=== PATIENT | male | born 1970 | race African-American/Black ===

== ENCOUNTER 2020-11-22 20:56 | Inpatient (IN) | payer OTHER ==
[2020-11-22 22:48] LABS: BASO % 0.7 % (0-2.0); EOS % 3.1 % (0-4.5); HEMATOCRIT 40.3 % (35.4-49); HEMOGLOBIN 13.7 GM/dL (11.7-16.9); LYMPH % 23.6 % (8-40); MCH 29.6 pg (25.7-33.7); MONO % 12.7 % (3.8-10.2); NEUT % 59.9 % (42.8-82.8); PLATELET COUNT 266 10^3/uL (134-434); RBC 4.64 M/mm3 (4.00-5.60); RDW 13.8 % (11.9-15.9)
[2020-11-22 22:55] LABS: INR 1.27 (0.83-1.09); PROTHROMBIN TIME (PATIENT) 15.3 SEC (9.7-13.0)
[2020-11-22 22:57] LABS: ACTIVATED PTT 32.5 SECONDS (25.2-36.5)
[2020-11-22 23:14] LABS: CALCIUM 8.9 mg/dL (8.5-10.1)
[2020-11-22 23:15] LABS: BLOOD UREA NITROGEN 8.1 mg/dL (7-18)
[2020-11-22 23:18] LABS: CREATININE 0.8 mg/dL (0.55-1.3)
[2020-11-22 23:19] LABS: BILIRUBIN,TOTAL 0.5 mg/dL (0.2-1); TOT PROT 8.1 g/dl (6.4-8.2)
[2020-11-23] MEDS ORDERED: SENNOSIDES 8.6MG TABLET (FP) PO PRN (03:23)
[2020-11-23 05:00] LABS: URINE APPEARANCE CLEAR; URINE BILIRUBIN NEGATIVE (NEGATIVE); URINE COLOR DK YELLOW; URINE GLUCOSE (UA) NEGATIVE (NEGATIVE); URINE KETONE 2+ (NEGATIVE); URINE LEUK ESTERASE NEGATIVE (NEGATIVE); URINE NITRITE NEGATIVE (NEGATIVE); URINE PROTEIN NEGATIVE (NEGATIVE)
[2020-11-23] MEDS ORDERED: ENOXAPARIN NA (PORCINE) 40 MG/0.4 ML DISP.SYRIN SQ ONE (09:34)
[2020-11-23] MEDS: ENOXAPARIN NA (PORCINE) 40 MG/0.4 ML DISP.SYRIN SQ SCH (09:46)
[2020-11-23] MEDS: AMINO ACIDS 4.25%/D5W 1,000 ML IV SCH ×2 (10:41→19:31)
[2020-11-23] MEDS: ACETAMINOPHEN 1000 MG/100 ML VIAL (NON FORMULARY) IVPB PRN ×2 (11:00→23:53)
[2020-11-23 11:30] LABS: BASO % 0.7 % (0-2.0); EOS % 4.2 % (0-4.5); HEMATOCRIT 41.6 % (35.4-49); LYMPH % 26.5 % (8-40); MCH 29.6 pg (25.7-33.7); MCHC 33.6 g/dl (32.0-35.9); MEAN PLT VOLUME 7.6 fl (7.5-11.1); MONO % 10.6 % (3.8-10.2); PLATELET COUNT 292 10^3/uL (134-434); RBC 4.72 M/mm3 (4.00-5.60); RDW 13.5 % (11.9-15.9); WHITE BLOOD COUNT 5.1 K/mm3 (4.0-10.0)
[2020-11-23 11:50] LABS: ALBUMIN 3.1 g/dl (3.4-5.0); BLOOD UREA NITROGEN 8.9 mg/dL (7-18); CALCIUM 9.1 mg/dL (8.5-10.1); MAGNESIUM 2.1 mg/dL (1.8-2.4)
[2020-11-23 11:53] LABS: CREATININE 0.8 mg/dL (0.55-1.3)
[2020-11-23 11:54] LABS: PHOSPHOROUS 3.2 mg/dL (2.5-4.9)
[2020-11-23 11:55] LABS: BILIRUBIN,TOTAL 0.6 mg/dL (0.2-1); TOT PROT 8.4 g/dl (6.4-8.2)
[2020-11-23] MEDS ORDERED: MORPHINE SULFATE 2 MG/ML VIAL IVPUSH ONE (14:32)
[2020-11-23] MEDS ORDERED: MORPHINE SULFATE 2 MG/ML VIAL ONE (15:26)
[2020-11-23] MEDS: DEXTROSE 5%-NORMAL SALINE 1,000 ML IV SCH (15:30)
[2020-11-23] MEDS: CARVEDILOL 25 MG TABLET (FP) PO SCH (21:19)
[2020-11-23] MEDS: ATORVASTATIN CA 40 MG TABLET (FP) PO SCH (21:19)
[2020-11-24] MEDS: AMINO ACIDS 4.25%/D5W 1,000 ML IV SCH (05:05)
[2020-11-24] MEDS: ELVITEG/COB/EMTRI/TENOFO (STRIBILD) TABLET -NF PO SCH (09:05)
[2020-11-24] MEDS: SULFAMETHOXAZOLE/TRIMETHOPRIM 800MG/160MG D.S. TABLET PO SCH (09:06)
[2020-11-24] MEDS: THIAMINE HCL 100 MG TABLET (FP) PO SCH (09:06)
[2020-11-24] MEDS: CARVEDILOL 25 MG TABLET (FP) PO SCH ×2 (09:06→21:20)
[2020-11-24] MEDS: ENOXAPARIN NA (PORCINE) 40 MG/0.4 ML DISP.SYRIN SQ SCH (09:06)
[2020-11-24] MEDS: ACETAMINOPHEN 1000 MG/100 ML VIAL (NON FORMULARY) IVPB PRN (09:08)
[2020-11-24] MEDS ORDERED: PT OWN MED DRAWER 7, Y5N ONE (09:15)
[2020-11-24] MEDS ORDERED: AMINO ACIDS 4.25%/D5W 1,000 ML IV SCH (15:30)
[2020-11-24] MEDS ORDERED: SODIUM CHLORIDE FOR INHALATION 3 ML VIAL.NEB IH PRN (15:37)
[2020-11-24 16:31] VITALS: BMI 20.9
[2020-11-24] MEDS: ACETAMINOPHEN 325 MG TABLET (FP) PO PRN (21:20)
[2020-11-24] MEDS: oxyCODONE HCL 5 MG TABLET PO PRN (21:20)
[2020-11-24] MEDS: guaiFENesin 600 MG TABLET.ER (FP) PO SCH (21:20)
[2020-11-24] MEDS: ATORVASTATIN CA 40 MG TABLET (FP) PO SCH (21:22)
[2020-11-25] MEDS: DEXTROSE 5%-NORMAL SALINE 1,000 ML IV SCH (03:45)
[2020-11-25] MEDS: oxyCODONE HCL 5 MG TABLET PO PRN ×3 (05:10→23:31)
[2020-11-25] MEDS: ACETAMINOPHEN 325 MG TABLET (FP) PO PRN ×3 (05:11→23:32)
[2020-11-25] MEDS ORDERED: PT OWN MED DRAWER 7, Y5N ONE ×3 (10:38→12:20)
[2020-11-25] MEDS: ENOXAPARIN NA (PORCINE) 40 MG/0.4 ML DISP.SYRIN SQ SCH (10:59)
[2020-11-25] MEDS: THIAMINE HCL 100 MG TABLET (FP) PO SCH (11:00)
[2020-11-25] MEDS: CARVEDILOL 25 MG TABLET (FP) PO SCH ×2 (11:00→21:24)
[2020-11-25] MEDS: guaiFENesin 600 MG TABLET.ER (FP) PO SCH ×2 (11:00→21:34)
[2020-11-25] MEDS: SULFAMETHOXAZOLE/TRIMETHOPRIM 800MG/160MG D.S. TABLET PO SCH (11:00)
[2020-11-25] MEDS: ELVITEG/COB/EMTRI/TENOFO (STRIBILD) TABLET -NF PO SCH (12:21)
[2020-11-25] MEDS: ATORVASTATIN CA 40 MG TABLET (FP) PO SCH (21:34)
[2020-11-26] MEDS ORDERED: PT OWN MED DRAWER 7, Y5N ONE (09:55)
[2020-11-26] MEDS: SULFAMETHOXAZOLE/TRIMETHOPRIM 800MG/160MG D.S. TABLET PO SCH (10:03)
[2020-11-26] MEDS: THIAMINE HCL 100 MG TABLET (FP) PO SCH (10:04)
[2020-11-26] MEDS: ACETAMINOPHEN 325 MG TABLET (FP) PO PRN (10:04)
[2020-11-26] MEDS: ELVITEG/COB/EMTRI/TENOFO (STRIBILD) TABLET -NF PO SCH (10:04)
[2020-11-26] MEDS: guaiFENesin 600 MG TABLET.ER (FP) PO SCH ×2 (10:04→22:33)
[2020-11-26] MEDS: CARVEDILOL 25 MG TABLET (FP) PO SCH ×2 (10:04→22:33)
[2020-11-26] MEDS: ENOXAPARIN NA (PORCINE) 40 MG/0.4 ML DISP.SYRIN SQ SCH (10:04)
[2020-11-26] MEDS: oxyCODONE HCL 5 MG TABLET PO PRN ×2 (10:04→22:49)
[2020-11-26 11:40] LABS: BASO % 0.7 % (0-2.0); EOS % 7.3 % (0-4.5); HEMATOCRIT 37.2 % (35.4-49); HEMOGLOBIN 12.8 GM/dL (11.7-16.9); LYMPH % 24.9 % (8-40); MCH 29.4 pg (25.7-33.7); MCHC 34.4 g/dl (32.0-35.9); MEAN CELL VOLUME 85.5 fl (80-96); MEAN PLT VOLUME 7.4 fl (7.5-11.1); MONO % 11.4 % (3.8-10.2); NEUT % 55.7 % (42.8-82.8); PLATELET COUNT 297 10^3/uL (134-434); RBC 4.36 M/mm3 (4.00-5.60); RDW 13.7 % (11.9-15.9); WHITE BLOOD COUNT 5.6 K/mm3 (4.0-10.0)
[2020-11-26 12:07] LABS: ALBUMIN 2.8 g/dl (3.4-5.0); BLOOD UREA NITROGEN 7.6 mg/dL (7-18)
[2020-11-26 12:09] LABS: BILIRUBIN,TOTAL 0.4 mg/dL (0.2-1); CALCIUM 8.5 mg/dL (8.5-10.1); TOT PROT 7.5 g/dl (6.4-8.2)
[2020-11-26 12:10] LABS: CREATININE 0.8 mg/dL (0.55-1.3); MAGNESIUM 1.9 mg/dL (1.8-2.4)
[2020-11-26 12:11] LABS: PHOSPHOROUS 2.4 mg/dL (2.5-4.9)
[2020-11-26] MEDS: ATORVASTATIN CA 40 MG TABLET (FP) PO SCH (22:33)
[2020-11-27] MEDS: SULFAMETHOXAZOLE/TRIMETHOPRIM 800MG/160MG D.S. TABLET PO SCH (09:15)
[2020-11-27] MEDS: CARVEDILOL 25 MG TABLET (FP) PO SCH ×2 (09:15→21:57)
[2020-11-27] MEDS: oxyCODONE HCL 5 MG TABLET PO PRN ×2 (09:15→20:11)
[2020-11-27] MEDS: ENOXAPARIN NA (PORCINE) 40 MG/0.4 ML DISP.SYRIN SQ SCH (09:15)
[2020-11-27] MEDS: ACETAMINOPHEN 325 MG TABLET (FP) PO PRN ×2 (09:15→20:10)
[2020-11-27] MEDS: guaiFENesin 600 MG TABLET.ER (FP) PO SCH ×2 (09:15→21:57)
[2020-11-27] MEDS: THIAMINE HCL 100 MG TABLET (FP) PO SCH (09:15)
[2020-11-27] MEDS ORDERED: PT OWN MED DRAWER 7, Y5N ONE (11:23)
[2020-11-27 11:26] LABS: BASO % 0.8 % (0-2.0); EOS % 6.2 % (0-4.5); HEMATOCRIT 36.8 % (35.4-49); HEMOGLOBIN 12.6 GM/dL (11.7-16.9); LYMPH % 27.6 % (8-40); MCH 29.8 pg (25.7-33.7); MCHC 34.2 g/dl (32.0-35.9); MEAN CELL VOLUME 87.1 fl (80-96); MEAN PLT VOLUME 7.6 fl (7.5-11.1); MONO % 11.9 % (3.8-10.2); NEUT % 53.5 % (42.8-82.8); PLATELET COUNT 313 10^3/uL (134-434); RBC 4.22 M/mm3 (4.00-5.60); RDW 13.6 % (11.9-15.9); WHITE BLOOD COUNT 5.8 K/mm3 (4.0-10.0)
[2020-11-27] MEDS: ELVITEG/COB/EMTRI/TENOFO (STRIBILD) TABLET -NF PO SCH (11:43)
[2020-11-27 11:59] LABS: CALCIUM 8.4 mg/dL (8.5-10.1)
[2020-11-27 12:00] LABS: ALBUMIN 2.8 g/dl (3.4-5.0); BLOOD UREA NITROGEN 9.3 mg/dL (7-18); MAGNESIUM 1.9 mg/dL (1.8-2.4)
[2020-11-27 12:03] LABS: CREATININE 0.9 mg/dL (0.55-1.3); PHOSPHOROUS 2.8 mg/dL (2.5-4.9)
[2020-11-27 12:04] LABS: BILIRUBIN,TOTAL 0.4 mg/dL (0.2-1); TOT PROT 7.5 g/dl (6.4-8.2)
[2020-11-27] MEDS: ATORVASTATIN CA 40 MG TABLET (FP) PO SCH (21:57)
[2020-11-28] MEDS: oxyCODONE HCL 5 MG TABLET PO PRN ×3 (04:21→22:14)
[2020-11-28] MEDS: ACETAMINOPHEN 325 MG TABLET (FP) PO PRN ×2 (04:22→11:21)
[2020-11-28 09:29] LABS: BASO % 1.1 % (0-2.0); EOS % 8.5 % (0-4.5); HEMATOCRIT 39.6 % (35.4-49); HEMOGLOBIN 13.2 GM/dL (11.7-16.9); LYMPH % 38.1 % (8-40); MCH 29.4 pg (25.7-33.7); MCHC 33.4 g/dl (32.0-35.9); MEAN PLT VOLUME 7.8 fl (7.5-11.1); MONO % 9.9 % (3.8-10.2); NEUT % 42.4 % (42.8-82.8); PLATELET COUNT 359 10^3/uL (134-434); RDW 13.8 % (11.9-15.9); WHITE BLOOD COUNT 4.8 K/mm3 (4.0-10.0)
[2020-11-28] MEDS ORDERED: PT OWN MED DRAWER 7, Y5N ONE ×2 (10:55→21:37)
[2020-11-28 11:11] LABS: CALCIUM 9.2 mg/dL (8.5-10.1)
[2020-11-28 11:12] LABS: ALBUMIN 3.2 g/dl (3.4-5.0)
[2020-11-28 11:13] LABS: BLOOD UREA NITROGEN 8.6 mg/dL (7-18); MAGNESIUM 2.2 mg/dL (1.8-2.4)
[2020-11-28 11:15] LABS: PHOSPHOROUS 3.1 mg/dL (2.5-4.9)
[2020-11-28 11:17] LABS: TOT PROT 8.4 g/dl (6.4-8.2)
[2020-11-28] MEDS: SULFAMETHOXAZOLE/TRIMETHOPRIM 800MG/160MG D.S. TABLET PO SCH (11:18)
[2020-11-28] MEDS: THIAMINE HCL 100 MG TABLET (FP) PO SCH (11:18)
[2020-11-28 11:19] LABS: BILIRUBIN,TOTAL 0.5 mg/dL (0.2-1)
[2020-11-28] MEDS: CARVEDILOL 25 MG TABLET (FP) PO SCH ×2 (11:19→22:14)
[2020-11-28] MEDS: ELVITEG/COB/EMTRI/TENOFO (STRIBILD) TABLET -NF PO SCH (11:19)
[2020-11-28] MEDS: guaiFENesin 600 MG TABLET.ER (FP) PO SCH ×2 (11:19→22:14)
[2020-11-28 18:56] LABS: BLOOD UREA NITROGEN 13.4 mg/dL (7-18); CALCIUM 8.7 mg/dL (8.5-10.1)
[2020-11-28 18:59] LABS: CREATININE 1.1 mg/dL (0.55-1.3)
[2020-11-28] MEDS: ATORVASTATIN CA 40 MG TABLET (FP) PO SCH (22:14)
[2020-11-29 09:37] LABS: HEMATOCRIT 36.1 % (35.4-49); HEMOGLOBIN 12.4 GM/dL (11.7-16.9); MCH 29.7 pg (25.7-33.7); MCHC 34.3 g/dl (32.0-35.9); MEAN CELL VOLUME 86.5 fl (80-96); MEAN PLT VOLUME 7.8 fl (7.5-11.1); PLATELET COUNT 328 10^3/uL (134-434); RBC 4.18 M/mm3 (4.00-5.60); RDW 13.6 % (11.9-15.9); WHITE BLOOD COUNT 5.5 K/mm3 (4.0-10.0)
[2020-11-29 09:46] LABS: PHOSPHOROUS 3.2 mg/dL (2.5-4.9)
[2020-11-29] MEDS ORDERED: GlUCAGON HUMAN RECOMBINANT 1 MG/VIAL IVPUSH ONE (11:15)
[2020-11-29] MEDS: THIAMINE HCL 100 MG TABLET (FP) PO SCH (12:09)
[2020-11-29] MEDS: oxyCODONE HCL 5 MG TABLET PO PRN ×2 (12:09→18:40)
[2020-11-29] MEDS: SULFAMETHOXAZOLE/TRIMETHOPRIM 800MG/160MG D.S. TABLET PO SCH (12:10)
[2020-11-29] MEDS: guaiFENesin 600 MG TABLET.ER (FP) PO SCH ×2 (12:10→21:47)
[2020-11-29] MEDS: ELVITEG/COB/EMTRI/TENOFO (STRIBILD) TABLET -NF PO SCH (14:13)
[2020-11-29] MEDS: ACETAMINOPHEN 325 MG TABLET (FP) PO PRN (14:13)
[2020-11-29] MEDS: CARVEDILOL 25 MG TABLET (FP) PO SCH ×2 (14:14→21:47)
[2020-11-29] MEDS: ATORVASTATIN CA 40 MG TABLET (FP) PO SCH (21:47)
[2020-11-30] MEDS: oxyCODONE HCL 5 MG TABLET PO PRN ×4 (04:02→18:08)
[2020-11-30 09:38] LABS: BASO % 0.7 % (0-2.0); EOS % 2.1 % (0-4.5); HEMATOCRIT 39.8 % (35.4-49); HEMOGLOBIN 13.6 GM/dL (11.7-16.9); LYMPH % 25.8 % (8-40); MCH 29.8 pg (25.7-33.7); MCHC 34.2 g/dl (32.0-35.9); MEAN CELL VOLUME 87.1 fl (80-96); MEAN PLT VOLUME 8.1 fl (7.5-11.1); MONO % 9.1 % (3.8-10.2); NEUT % 62.3 % (42.8-82.8); PLATELET COUNT 374 10^3/uL (134-434); RBC 4.57 M/mm3 (4.00-5.60); RDW 13.5 % (11.9-15.9); WHITE BLOOD COUNT 8.1 K/mm3 (4.0-10.0)
[2020-11-30] MEDS: THIAMINE HCL 100 MG TABLET (FP) PO SCH (10:09)
[2020-11-30] MEDS: SULFAMETHOXAZOLE/TRIMETHOPRIM 800MG/160MG D.S. TABLET PO SCH (10:09)
[2020-11-30] MEDS: CARVEDILOL 25 MG TABLET (FP) PO SCH ×2 (10:09→21:32)
[2020-11-30] MEDS: guaiFENesin 600 MG TABLET.ER (FP) PO SCH ×2 (10:09→21:32)
[2020-11-30] MEDS: ELVITEG/COB/EMTRI/TENOFO (STRIBILD) TABLET -NF PO SCH (10:10)
[2020-11-30] MEDS: ACETAMINOPHEN 325 MG TABLET (FP) PO PRN (20:39)
[2020-11-30] MEDS: MIRTAZAPINE 15 MG TABLET (FP) GT SCH (21:32)
[2020-11-30] MEDS: ATORVASTATIN CA 40 MG TABLET (FP) PO SCH (21:32)
[2020-12-01] MEDS: oxyCODONE HCL 5 MG TABLET PO PRN ×2 (05:31→20:28)
[2020-12-01] MEDS ORDERED: PT OWN MED DRAWER 7, Y5N ONE (09:57)
[2020-12-01] MEDS: THIAMINE HCL 100 MG TABLET (FP) PO SCH (10:02)
[2020-12-01] MEDS: guaiFENesin 600 MG TABLET.ER (FP) PO SCH ×2 (10:02→21:35)
[2020-12-01] MEDS: ELVITEG/COB/EMTRI/TENOFO (STRIBILD) TABLET -NF PO SCH (10:02)
[2020-12-01] MEDS: SULFAMETHOXAZOLE/TRIMETHOPRIM 800MG/160MG D.S. TABLET PO SCH (10:02)
[2020-12-01] MEDS: CARVEDILOL 25 MG TABLET (FP) PO SCH ×2 (10:02→21:35)
[2020-12-01] MEDS: MIRTAZAPINE 15 MG TABLET (FP) GT SCH ×2 (21:35→22:01)
[2020-12-01] MEDS: ATORVASTATIN CA 40 MG TABLET (FP) PO SCH (21:35)
[2020-12-02] MEDS ORDERED: PT OWN MED DRAWER 7, Y5N ONE (11:19)
[2020-12-02] MEDS: guaiFENesin 600 MG TABLET.ER (FP) PO SCH ×2 (11:21→21:40)
[2020-12-02] MEDS: THIAMINE HCL 100 MG TABLET (FP) PO SCH (11:22)
[2020-12-02] MEDS: ELVITEG/COB/EMTRI/TENOFO (STRIBILD) TABLET -NF PO SCH (11:22)
[2020-12-02] MEDS: CARVEDILOL 25 MG TABLET (FP) PO SCH ×2 (11:22→21:40)
[2020-12-02] MEDS: SULFAMETHOXAZOLE/TRIMETHOPRIM 800MG/160MG D.S. TABLET PO SCH (11:22)
[2020-12-02] MEDS: oxyCODONE HCL 5 MG TABLET PO PRN ×2 (14:00→18:47)
[2020-12-02] MEDS ORDERED: CEFAZOLIN 1 GM in DEXTROSE 5%-WATER - 50 ML IVPB ONE (15:35)
[2020-12-02] MEDS: MIRTAZAPINE 15 MG TABLET (FP) GT SCH ×2 (21:40→21:44)
[2020-12-02] MEDS: ATORVASTATIN CA 40 MG TABLET (FP) PO SCH (21:40)
[2020-12-03] MEDS ORDERED: oxyCODONE HCL 5 MG TABLET PO ONE (03:36)
[2020-12-03] MEDS ORDERED: PT OWN MED DRAWER 7, Y5N ONE (09:36)
[2020-12-03] MEDS: THIAMINE HCL 100 MG TABLET (FP) PO SCH (09:42)
[2020-12-03] MEDS: guaiFENesin 600 MG TABLET.ER (FP) PO SCH (09:43)
[2020-12-03] MEDS: SULFAMETHOXAZOLE/TRIMETHOPRIM 800MG/160MG D.S. TABLET PO SCH (09:43)
[2020-12-03] MEDS: ELVITEG/COB/EMTRI/TENOFO (STRIBILD) TABLET -NF PO SCH (09:43)
[2020-12-03] MEDS: CARVEDILOL 25 MG TABLET (FP) PO SCH (09:43)
[2020-12-03] MEDS: ACETAMINOPHEN 325 MG TABLET (FP) PO PRN (09:43)
[2020-12-03 17:08] VITALS: BP 102/68; PULSE 69; TEMP 97.8
== END 2020-12-03 17:44 | DRG 110 ==
LOC: JER 20:56 → JERBED 23:01 → J8W 11-23 21:49 → J5S 11-24 15:24
PROVIDERS: ADMIT Internal Medicine
PROC: 0DH63UZ Insertion of Feeding Device into Stomach, Percutaneous Approach (ICD-10-PCS; principal; 2020-11-29)
PROC: BD12ZZZ Fluoroscopy of Stomach (ICD-10-PCS; 2020-11-29)
PROC: 0JH60WZ Insertion of Totally Implantable Vascular Access Device into Chest Subcutaneous Tissue and Fascia, Open Approach (ICD-10-PCS; 2020-12-02)
DX: C32.0 Malignant neoplasm of glottis (principal); Z21 Asymptomatic human immunodeficiency virus [HIV] infection status; I10 Essential (primary) hypertension; Z93.0 Tracheostomy status; R13.10 Dysphagia, unspecified; J96.10 Chronic respiratory failure, unspecified whether with hypoxia or hypercapnia; E78.5 Hyperlipidemia, unspecified; F32.9 Major depressive disorder, single episode, unspecified; I69.351 Hemiplegia and hemiparesis following cerebral infarction affecting right dominant side; K21.9 Gastro-esophageal reflux disease without esophagitis
CPT/HCPCS: 36415; 36561; 49440; 71045-TC-FY; 74018-TC-FY; 74230-TC-FY; 77001-TC-FY; 80048; 80053; 81003; 82962; 83735; 84100; 85025; 85027; 85610; 85730; 86359; 86360; 86850; 86900; 86901; 92611-GN; 93005; 93010; 97116-GP; 97161-GP; 99285-25; C1788; C9803; J0131; U0003; U0005

== ENCOUNTER 2021-01-09 07:38 | Day surgery (SDC) | payer OTHER ==
[2021-01-09] MEDS ORDERED: SODIUM CHLORIDE 500 ML IV STA (10:20)
[2021-01-09] MEDS ORDERED: PALONOSETRON HCL 0.25 MG/5 ML VIAL IVPUSH ONE (11:00)
[2021-01-09] MEDS ORDERED: SODIUM CHLORIDE 250 ML IV ONE (11:00)
[2021-01-09] MEDS ORDERED: DEXAMETHASONE SODIUM PHOSPHATE 10 MG in SODIUM CHLORIDE 50 ML IVPB ONE (11:00)
[2021-01-09] MEDS ORDERED: SODIUM CHLORIDE IVPB ONE (11:30)
[2021-01-09] MEDS ORDERED: CARBOPLATIN IVPB ONE (11:30)
[2021-01-09 15:49] VITALS: TEMP 97.8
[2021-01-09 15:51] VITALS: BP 151/104; PULSE 71
== END 2021-01-09 13:20 | disposition home or self-care (01) ==
LOC: JONCCHEMO 07:38
PROVIDERS: ATTEND Internal Medicine Hematology & Oncology
DX: Z51.11 Encounter for antineoplastic chemotherapy (principal); C76.0 Malignant neoplasm of head, face and neck; C79.89 Secondary malignant neoplasm of other specified sites
CPT/HCPCS: 96361; 96367; 96413; J2469

== ENCOUNTER 2021-01-20 07:06 | Day surgery (SDC) | payer OTHER ==
[2021-01-20 09:00] LABS: BASO % 0.5 % (0-2.0); EOS % 4.8 % (0-4.5); HEMATOCRIT 37.2 % (35.4-49); HEMOGLOBIN 12.5 GM/dL (11.7-16.9); LYMPH % 14.5 % (8-40); MCH 30.6 pg (25.7-33.7); MCHC 33.5 g/dl (32.0-35.9); MEAN CELL VOLUME 91.3 fl (80-96); MEAN PLT VOLUME 7.2 fl (7.5-11.1); NEUT % 69.2 % (42.8-82.8); PLATELET COUNT 213 10^3/uL (134-434); RBC 4.07 M/mm3 (4.00-5.60); RDW 18.5 % (11.9-15.9); WHITE BLOOD COUNT 5.1 K/mm3 (4.0-10.0)
[2021-01-20 09:18] LABS: CALCIUM 8.7 mg/dL (8.5-10.1)
[2021-01-20 09:19] LABS: BLOOD UREA NITROGEN 7.1 mg/dL (7-18)
[2021-01-20 09:22] LABS: CREATININE 0.7 mg/dL (0.55-1.3)
[2021-01-20 09:24] LABS: BILIRUBIN,TOTAL 0.4 mg/dL (0.2-1); TOT PROT 7.3 g/dl (6.4-8.2)
[2021-01-20] MEDS ORDERED: SODIUM CHLORIDE 500 ML IV ONE (10:00)
[2021-01-20] MEDS ORDERED: CARBOPLATIN IVPB ONE ×2 (10:00→10:30)
[2021-01-20] MEDS ORDERED: PALONOSETRON HCL 0.25 MG/5 ML VIAL IVPUSH ONE (10:00)
[2021-01-20] MEDS ORDERED: SODIUM CHLORIDE IVPB ONE ×2 (10:00→10:30)
[2021-01-20] MEDS ORDERED: DEXAMETHASONE INJECTION 10 MG in SODIUM CHLORIDE 50 ML IVPB ONE (10:00)
[2021-01-20 15:57] VITALS: BP 158/94; PULSE 77; TEMP 98.3
[2021-01-20] MEDS ORDERED: PORTA CATH FLUSH 10 ML IVPUSH ONE (15:57)
== END 2021-01-20 13:30 | disposition home or self-care (01) ==
LOC: JONCCHEMO 07:06
PROVIDERS: ATTEND Internal Medicine Hematology & Oncology
DX: Z51.11 Encounter for antineoplastic chemotherapy (principal); C76.0 Malignant neoplasm of head, face and neck; C79.89 Secondary malignant neoplasm of other specified sites
CPT/HCPCS: 36415; 80053; 83735; 85025; 96361; 96367; 96375; 96413; J2469

== ENCOUNTER 2021-01-27 08:16 | Day surgery (SDC) | payer OTHER ==
[2021-01-27 09:27] LABS: BASO % 0.6 % (0-2.0); EOS % 6.3 % (0-4.5); HEMATOCRIT 38.3 % (35.4-49); HEMOGLOBIN 12.8 GM/dL (11.7-16.9); LYMPH % 14.2 % (8-40); MCH 30.7 pg (25.7-33.7); MCHC 33.5 g/dl (32.0-35.9); MEAN CELL VOLUME 91.7 fl (80-96); MONO % 11.4 % (3.8-10.2); NEUT % 67.5 % (42.8-82.8); PLATELET COUNT 218 10^3/uL (134-434); RBC 4.18 M/mm3 (4.00-5.60); RDW 18.6 % (11.9-15.9); WHITE BLOOD COUNT 3.4 K/mm3 (4.0-10.0)
[2021-01-27 09:44] LABS: CALCIUM 8.3 mg/dL (8.5-10.1)
[2021-01-27 09:45] LABS: ALBUMIN 2.7 g/dl (3.4-5.0); BLOOD UREA NITROGEN 8.3 mg/dL (7-18)
[2021-01-27 09:48] LABS: CREATININE 0.6 mg/dL (0.55-1.3)
[2021-01-27 09:49] LABS: BILIRUBIN,TOTAL 0.3 mg/dL (0.2-1); TOT PROT 6.8 g/dl (6.4-8.2)
[2021-01-27] MEDS ORDERED: DEXAMETHASONE INJECTION 10 MG in SODIUM CHLORIDE 50 ML IVPB ONE (10:00)
[2021-01-27] MEDS ORDERED: PALONOSETRON HCL 0.25 MG/5 ML VIAL IVPUSH ONE (10:00)
[2021-01-27] MEDS ORDERED: SODIUM CHLORIDE 500 ML IV ONE (10:00)
[2021-01-27] MEDS ORDERED: CARBOPLATIN IVPB ONE (10:30)
[2021-01-27] MEDS ORDERED: SODIUM CHLORIDE IVPB ONE (10:30)
[2021-01-27 17:41] VITALS: TEMP 98.5
[2021-01-27 17:55] VITALS: BP 125/78; PULSE 81
== END 2021-01-27 12:30 | disposition home or self-care (01) ==
LOC: JONCCHEMO 08:16
PROVIDERS: ATTEND Internal Medicine Hematology & Oncology
DX: Z51.11 Encounter for antineoplastic chemotherapy (principal); C76.0 Malignant neoplasm of head, face and neck; C79.89 Secondary malignant neoplasm of other specified sites
CPT/HCPCS: 36415; 80053; 85025; 86359; 86360; 96361; 96367; 96375; 96413; J2469

== ENCOUNTER 2021-02-03 08:43 | Day surgery (SDC) | payer OTHER ==
[2021-02-03 10:29] LABS: BASO % 0.5 % (0-2.0); EOS % 5.7 % (0-4.5); HEMATOCRIT 38.2 % (35.4-49); HEMOGLOBIN 12.7 GM/dL (11.7-16.9); LYMPH % 10.8 % (8-40); MCH 31.1 pg (25.7-33.7); MCHC 33.3 g/dl (32.0-35.9); MEAN CELL VOLUME 93.2 fl (80-96); MEAN PLT VOLUME 6.8 fl (7.5-11.1); MONO % 18.4 % (3.8-10.2); NEUT % 64.6 % (42.8-82.8); PLATELET COUNT 216 10^3/uL (134-434); RDW 19.1 % (11.9-15.9); WHITE BLOOD COUNT 3.1 K/mm3 (4.0-10.0)
[2021-02-03 10:46] LABS: ALBUMIN 2.8 g/dl (3.4-5.0); CALCIUM 8.9 mg/dL (8.5-10.1)
[2021-02-03 10:50] LABS: CREATININE 0.7 mg/dL (0.55-1.3)
[2021-02-03 10:51] LABS: BILIRUBIN,TOTAL 0.4 mg/dL (0.2-1); TOT PROT 6.8 g/dl (6.4-8.2)
[2021-02-03] MEDS ORDERED: PALONOSETRON HCL 0.25 MG/5 ML VIAL IVPUSH ONE (11:00)
[2021-02-03] MEDS ORDERED: SODIUM CHLORIDE 500 ML IV ONE (11:00)
[2021-02-03] MEDS ORDERED: DEXAMETHASONE INJECTION 10 MG in SODIUM CHLORIDE 50 ML IVPB ONE (11:30)
[2021-02-03] MEDS ORDERED: SODIUM CHLORIDE IVPB ONE (11:45)
[2021-02-03] MEDS ORDERED: CARBOPLATIN IVPB ONE (11:45)
[2021-02-03 16:38] VITALS: TEMP 98.1
[2021-02-03 16:39] VITALS: BP 139/90; PULSE 74
== END 2021-02-03 13:30 | disposition home or self-care (01) ==
LOC: JONCCHEMO 08:43
PROVIDERS: ATTEND Internal Medicine Hematology & Oncology
DX: Z51.11 Encounter for antineoplastic chemotherapy (principal); C76.0 Malignant neoplasm of head, face and neck; C79.89 Secondary malignant neoplasm of other specified sites
CPT/HCPCS: 36415; 80053; 85025; 86359; 86360; 96361; 96367; 96375; 96413; J1100; J2469

== ENCOUNTER 2021-02-10 08:22 | Day surgery (SDC) | payer OTHER ==
[2021-02-10] MEDS ORDERED: SODIUM CHLORIDE 500 ML IV ONE (09:00)
[2021-02-10] MEDS ORDERED: PALONOSETRON HCL 0.25 MG/5 ML VIAL IVPUSH ONE (10:00)
[2021-02-10] MEDS ORDERED: DEXAMETHASONE INJECTION 10 MG in SODIUM CHLORIDE 50 ML IVPB ONE (10:00)
[2021-02-10] MEDS ORDERED: CARBOPLATIN IVPB ONE (10:30)
[2021-02-10] MEDS ORDERED: SODIUM CHLORIDE IVPB ONE (10:30)
[2021-02-10 11:05] LABS: HEMATOCRIT 38.2 % (35.4-49); HEMOGLOBIN 13.1 GM/dL (11.7-16.9); MCHC 34.2 g/dl (32.0-35.9); MEAN CELL VOLUME 93.6 fl (80-96); MEAN PLT VOLUME 7.1 fl (7.5-11.1); PLATELET COUNT 212 10^3/uL (134-434); RBC 4.09 M/mm3 (4.00-5.60); RDW 19.7 % (11.9-15.9); WHITE BLOOD COUNT 3.5 K/mm3 (4.0-10.0)
[2021-02-10 11:22] LABS: CALCIUM 8.5 mg/dL (8.5-10.1)
[2021-02-10 11:24] LABS: BLOOD UREA NITROGEN 11.5 mg/dL (7-18); MAGNESIUM 1.8 mg/dL (1.8-2.4)
[2021-02-10 11:26] LABS: CREATININE 0.6 mg/dL (0.55-1.3)
[2021-02-10 11:29] LABS: BILIRUBIN,TOTAL 0.5 mg/dL (0.2-1); TOT PROT 7.1 g/dl (6.4-8.2)
[2021-02-10 13:05] LABS: ANISOCYTOSIS 1+; MACROCYTOSIS 1+; PLATELET ESTIMATE NORMAL
[2021-02-10 16:18] VITALS: TEMP 99.1
[2021-02-10 16:32] VITALS: BP 137/88; PULSE 83
== END 2021-02-10 15:50 | disposition home or self-care (01) ==
LOC: JONCCHEMO 08:22
PROVIDERS: ATTEND Internal Medicine Hematology & Oncology
DX: Z51.11 Encounter for antineoplastic chemotherapy (principal); C76.0 Malignant neoplasm of head, face and neck; C79.89 Secondary malignant neoplasm of other specified sites
CPT/HCPCS: 36415; 80053; 83735; 85025; 96361; 96375; 96413; J1100; J2469

== ENCOUNTER 2021-02-17 08:36 | Day surgery (SDC) | payer OTHER ==
[2021-02-17] MEDS ORDERED: SODIUM CHLORIDE 500 ML IV ONE (09:00)
[2021-02-17] MEDS ORDERED: DEXAMETHASONE INJECTION 10 MG in SODIUM CHLORIDE 50 ML IVPB ONE (09:30)
[2021-02-17] MEDS ORDERED: PALONOSETRON HCL 0.25 MG/5 ML VIAL IVPUSH ONE (09:30)
[2021-02-17] MEDS ORDERED: SODIUM CHLORIDE IVPB ONE (10:00)
[2021-02-17] MEDS ORDERED: CARBOPLATIN IVPB ONE (10:00)
[2021-02-17 10:27] LABS: EOS % 4.2 % (0-4.5); HEMOGLOBIN 13.5 GM/dL (11.7-16.9); LYMPH % 6.9 % (8-40); MCH 32.1 pg (25.7-33.7); MCHC 34.6 g/dl (32.0-35.9); MEAN CELL VOLUME 92.8 fl (80-96); MEAN PLT VOLUME 6.5 fl (7.5-11.1); MONO % 16.4 % (3.8-10.2); NEUT % 71.5 % (42.8-82.8); PLATELET COUNT 176 10^3/uL (134-434); RDW 19.3 % (11.9-15.9); WHITE BLOOD COUNT 3.4 K/mm3 (4.0-10.0)
[2021-02-17 10:45] LABS: BLOOD UREA NITROGEN 11.4 mg/dL (7-18); CALCIUM 8.5 mg/dL (8.5-10.1); MAGNESIUM 2.1 mg/dL (1.8-2.4)
[2021-02-17 10:48] LABS: CREATININE 0.7 mg/dL (0.55-1.3)
[2021-02-17 10:49] LABS: BILIRUBIN,TOTAL 0.4 mg/dL (0.2-1); TOT PROT 7.1 g/dl (6.4-8.2)
[2021-02-17 10:56] LABS: BILIRUBIN,DIRECT 0.2 mg/dL (0.0-0.2)
[2021-02-17 10:57] LABS: BILIRUBIN,TOTAL 0.5 mg/dL (0.2-1); TOT PROT 7.1 g/dl (6.4-8.2)
[2021-02-17 15:14] VITALS: TEMP 98.9
[2021-02-17 15:15] VITALS: BP 125/91; PULSE 86
== END 2021-02-17 12:25 | disposition home or self-care (01) ==
LOC: JONCCHEMO 08:36
PROVIDERS: ATTEND Internal Medicine Hematology & Oncology
DX: Z51.11 Encounter for antineoplastic chemotherapy (principal); C76.0 Malignant neoplasm of head, face and neck; C79.89 Secondary malignant neoplasm of other specified sites
CPT/HCPCS: 36415; 80053; 80076; 83735; 85025; 96361; 96375; 96413; J1100; J2469

== ENCOUNTER 2021-02-24 07:47 | Day surgery (SDC) | payer OTHER ==
[2021-02-24] MEDS ORDERED: SODIUM CHLORIDE 500 ML IV ONE (09:00)
[2021-02-24] MEDS ORDERED: PALONOSETRON HCL 0.25 MG/5 ML VIAL IVPUSH ONE (09:30)
[2021-02-24] MEDS ORDERED: DEXAMETHASONE INJECTION 10 MG in SODIUM CHLORIDE 50 ML IVPB ONE (09:30)
[2021-02-24] MEDS ORDERED: CARBOPLATIN IVPB ONE (10:00)
[2021-02-24] MEDS ORDERED: SODIUM CHLORIDE IVPB ONE (10:00)
[2021-02-24 10:44] LABS: BASO % 0.6 % (0-2.0); EOS % 2.9 % (0-4.5); HEMATOCRIT 40.2 % (35.4-49); HEMOGLOBIN 13.7 GM/dL (11.7-16.9); LYMPH % 6.7 % (8-40); MCH 31.6 pg (25.7-33.7); MEAN CELL VOLUME 93.1 fl (80-96); MEAN PLT VOLUME 6.3 fl (7.5-11.1); MONO % 16.2 % (3.8-10.2); NEUT % 73.6 % (42.8-82.8); PLATELET COUNT 146 10^3/uL (134-434); RBC 4.32 M/mm3 (4.00-5.60); RDW 19.9 % (11.9-15.9); WHITE BLOOD COUNT 2.7 K/mm3 (4.0-10.0)
[2021-02-24 11:06] LABS: ALBUMIN 2.8 g/dl (3.4-5.0); BLOOD UREA NITROGEN 12.3 mg/dL (7-18); CALCIUM 8.7 mg/dL (8.5-10.1); MAGNESIUM 2.3 mg/dL (1.8-2.4)
[2021-02-24 11:09] LABS: CREATININE 0.7 mg/dL (0.55-1.3)
[2021-02-24 11:11] LABS: BILIRUBIN,TOTAL 0.4 mg/dL (0.2-1); TOT PROT 6.9 g/dl (6.4-8.2)
[2021-02-24 14:38] VITALS: TEMP 98.3
[2021-02-24 14:40] VITALS: BP 149/97; PULSE 90
== END 2021-02-24 13:50 | disposition home or self-care (01) ==
LOC: JONCCHEMO 07:47
PROVIDERS: ATTEND Internal Medicine Hematology & Oncology
DX: Z51.11 Encounter for antineoplastic chemotherapy (principal); C32.9 Malignant neoplasm of larynx, unspecified
CPT/HCPCS: 36415; 80053; 83735; 85025; 96361; 96367; 96375; 96413; J1100; J2469

== ENCOUNTER 2021-05-12 13:25 | Inpatient (IN) | payer OTHER ==
[2021-05-12] MEDS ORDERED: PIPERACILLIN/TAZOB 4.5 GM 4.5 GM in DEXTROSE 5%-WATER 100 ML IVPB ONE (20:14)
[2021-05-12] MEDS ORDERED: VANCOMYCIN/WATER 1,250 MG/250 ML BAG IVPB ONE (20:16)
[2021-05-12] MEDS ORDERED: VANCOMYCIN 1 GM in D5W (PRE-DOCKED) 1,000 MG/250 ML IVPB ONE (20:43)
[2021-05-12] MEDS ORDERED: PIPERACILLIN/TAZOB 4.5 GM 4.5 GM/100 ML BAG IVPB ONE (20:44)
[2021-05-12] MEDS ORDERED: VANCOMYCIN 1 GRAM (PRE-DOCKED) 1,000 MG/250 ML BAG IVPB ONE (20:45)
[2021-05-12] MEDS ORDERED: ACETAMINOPHEN 1000 MG/100 ML BAG IVPB ONE (21:35)
[2021-05-12] MEDS ORDERED: ACETAMINOPHEN INJECTION 100 ML IVPB ONE (21:35)
[2021-05-13] MEDS ORDERED: SENNOSIDES 8.6MG TABLET (FP) PO PRN (04:06)
[2021-05-13] MEDS ORDERED: DOCUSATE SODIUM 100 MG CAPSULE (FP) PO PRN (04:06)
[2021-05-13] MEDS: NYSTATIN 500,000 UNITS/5 ML SUSPENSION PO SCH ×3 (06:38→17:19)
[2021-05-13] MEDS ORDERED: ACETAMINOPHEN 325 MG TABLET (FP) PO ONE (07:06)
[2021-05-13] MEDS ORDERED: LIDOCAINE 5% TOPICAL PATCH TP ONE (07:06)
[2021-05-13 07:54] VITALS: BMI 24.0
[2021-05-13] MEDS ORDERED: DEXTROSE 5%-WATER - 50 ML IVPB ONE ×2 (09:17→17:11)
[2021-05-13] MEDS ORDERED: PIPERACILLIN/TAZOBACTAM 3.375 GM VIAL IVPB ONE ×2 (09:17→17:10)
[2021-05-13] MEDS ORDERED: VANCOMYCIN 1 GM in D5W (PRE-DOCKED) 1,000 MG/250 ML IVPB SCH (10:00)
[2021-05-13] MEDS ORDERED: PIPERACILLIN/TAZOB 3.375 GM 3.375 GM in DEXTROSE 5%-WATER - 50 ML IVPB SCH (10:00)
[2021-05-13] MEDS: THIAMINE HCL 100 MG TABLET (FP) PO SCH (10:07)
[2021-05-13] MEDS: ENOXAPARIN NA (PORCINE) 40 MG/0.4 ML DISP.SYRIN SQ SCH (10:07)
[2021-05-13] MEDS: SULFAMETHOXAZOLE/TRIMETHOPRIM 800MG/160MG D.S. TABLET PO SCH (10:07)
[2021-05-13] MEDS: CARVEDILOL 25 MG TABLET (FP) PO SCH ×2 (10:07→22:10)
[2021-05-13] MEDS: VANCOMYCIN 1 GRAM (PRE-DOCKED) 1,000 MG/250 ML BAG IVPB SCH ×2 (10:09→22:16)
[2021-05-13] MEDS: ELVITEG/COB/EMTRI/TENOFO (STRIBILD) TABLET -NF PO SCH (10:09)
[2021-05-13] MEDS: FLUTICASONE PROP 0.05% 16 GM NASAL SPRAY NS SCH ×2 (10:09→22:45)
[2021-05-13 12:58] LABS: HEMATOCRIT 39.2 % (35.4-49); MCH 32.2 pg (25.7-33.7); MCHC 33.3 g/dl (32.0-35.9); MEAN CELL VOLUME 96.7 fl (80-96); MEAN PLT VOLUME 6.9 fl (7.5-11.1); PLATELET COUNT 235 10^3/uL (134-434); RBC 4.05 M/mm3 (4.00-5.60); RDW 16.2 % (11.9-15.9); WHITE BLOOD COUNT 2.4 K/mm3 (4.0-10.0)
[2021-05-13 13:29] LABS: ALBUMIN 3.2 g/dl (3.4-5.0); BLOOD UREA NITROGEN 10.8 mg/dL (7-18); CALCIUM 8.8 mg/dL (8.5-10.1); MAGNESIUM 2.2 mg/dL (1.8-2.4)
[2021-05-13 13:32] LABS: PHOSPHOROUS 4.2 mg/dL (2.5-4.9)
[2021-05-13 13:33] LABS: CREATININE 0.7 mg/dL (0.55-1.3)
[2021-05-13 13:34] LABS: BILIRUBIN,TOTAL 0.5 mg/dL (0.2-1)
[2021-05-13 13:35] LABS: TOT PROT 6.9 g/dl (6.4-8.2)
[2021-05-13 13:45] LABS: ANISOCYTOSIS 0; MACROCYTOSIS 0; PLATELET ESTIMATE NORMAL
[2021-05-13] MEDS: ACETAMINOPHEN 325 MG TABLET (FP) PO PRN (17:19)
[2021-05-13] MEDS: PIPERACILLIN/TAZOB 3.375 GM 3.375 GM in DEXTROSE 5%-WATER - 50 ML IVPB SCH (17:20)
[2021-05-13] MEDS: morphine SULFATE IMMEDIATE RELEASE 30 MG TAB PO PRN (18:44)
[2021-05-13] MEDS ORDERED: LIDOCAINE PATCH REMOVAL MC ONE (20:00)
[2021-05-13] MEDS ORDERED: ATORVASTATIN CA 40 MG TABLET (FP) PO SCH (22:00)
[2021-05-14] MEDS: NYSTATIN 500,000 UNITS/5 ML SUSPENSION PO SCH ×4 (00:25→18:05)
[2021-05-14] MEDS: morphine SULFATE IMMEDIATE RELEASE 30 MG TAB PO PRN ×3 (00:28→16:50)
[2021-05-14] MEDS ORDERED: DEXTROSE 5%-WATER - 50 ML IVPB ONE ×4 (01:00→20:47)
[2021-05-14] MEDS ORDERED: PIPERACILLIN/TAZOBACTAM 3.375 GM VIAL IVPB ONE ×4 (01:00→20:46)
[2021-05-14] MEDS: PIPERACILLIN/TAZOB 3.375 GM 3.375 GM in DEXTROSE 5%-WATER - 50 ML IVPB SCH ×5 (01:06→21:08)
[2021-05-14 09:38] LABS: BASO % 0.4 % (0-2.0); EOS % 3.2 % (0-4.5); HEMATOCRIT 40.3 % (35.4-49); LYMPH % 10.6 % (8-40); MCH 31.2 pg (25.7-33.7); MCHC 32.2 g/dl (32.0-35.9); MEAN CELL VOLUME 96.7 fl (80-96); MEAN PLT VOLUME 6.8 fl (7.5-11.1); MONO % 13.2 % (3.8-10.2); NEUT % 72.6 % (42.8-82.8); PLATELET COUNT 255 10^3/uL (134-434); RBC 4.17 M/mm3 (4.00-5.60); RDW 16.8 % (11.9-15.9); WHITE BLOOD COUNT 4.3 K/mm3 (4.0-10.0)
[2021-05-14 09:57] LABS: CALCIUM 8.7 mg/dL (8.5-10.1)
[2021-05-14 09:58] LABS: ALBUMIN 3.1 g/dl (3.4-5.0); BLOOD UREA NITROGEN 5.6 mg/dL (7-18)
[2021-05-14 10:01] LABS: CREATININE 0.8 mg/dL (0.55-1.3)
[2021-05-14 10:02] LABS: TOT PROT 6.6 g/dl (6.4-8.2)
[2021-05-14] MEDS: methylPREDNISolone NA SUCC 125 MG/2 ML VIAL IVPUSH SCH (10:04)
[2021-05-14] MEDS: ENOXAPARIN NA (PORCINE) 40 MG/0.4 ML DISP.SYRIN SQ SCH (10:08)
[2021-05-14] MEDS: CARVEDILOL 25 MG TABLET (FP) PO SCH ×2 (10:09→21:09)
[2021-05-14] MEDS: THIAMINE HCL 100 MG TABLET (FP) PO SCH (10:09)
[2021-05-14] MEDS: SULFAMETHOXAZOLE/TRIMETHOPRIM 800MG/160MG D.S. TABLET PO SCH (10:09)
[2021-05-14] MEDS: ELVITEG/COB/EMTRI/TENOFO (STRIBILD) TABLET -NF PO SCH (10:10)
[2021-05-14] MEDS: FLUTICASONE PROP 0.05% 16 GM NASAL SPRAY NS SCH ×2 (10:10→21:10)
[2021-05-14] MEDS: VANCOMYCIN 1 GRAM (PRE-DOCKED) 1,000 MG/250 ML BAG IVPB SCH (13:47)
[2021-05-14] MEDS ORDERED: morphine SULFATE IMMEDIATE RELEASE 30 MG TAB PO PRN (16:23)
[2021-05-15] MEDS: VANCOMYCIN 1 GRAM (PRE-DOCKED) 1,000 MG/250 ML BAG IVPB SCH ×2 (00:43→17:32)
[2021-05-15] MEDS: NYSTATIN 500,000 UNITS/5 ML SUSPENSION PO SCH ×4 (00:43→17:57)
[2021-05-15] MEDS: morphine SULFATE IMMEDIATE RELEASE 30 MG TAB PO PRN ×4 (00:51→22:03)
[2021-05-15] MEDS ORDERED: PIPERACILLIN/TAZOBACTAM 3.375 GM VIAL IVPB ONE ×4 (02:56→21:26)
[2021-05-15] MEDS ORDERED: DEXTROSE 5%-WATER - 50 ML IVPB ONE ×4 (02:56→21:26)
[2021-05-15] MEDS: PIPERACILLIN/TAZOB 3.375 GM 3.375 GM in DEXTROSE 5%-WATER - 50 ML IVPB SCH ×4 (03:01→21:43)
[2021-05-15 09:47] LABS: HEMATOCRIT 38.8 % (35.4-49); HEMOGLOBIN 12.8 GM/dL (11.7-16.9); MCH 31.7 pg (25.7-33.7); MCHC 33.1 g/dl (32.0-35.9); MEAN CELL VOLUME 95.7 fl (80-96); MEAN PLT VOLUME 6.8 fl (7.5-11.1); PLATELET COUNT 235 10^3/uL (134-434); RBC 4.05 M/mm3 (4.00-5.60); RDW 16.1 % (11.9-15.9); WHITE BLOOD COUNT 12.3 K/mm3 (4.0-10.0)
[2021-05-15 10:09] LABS: CALCIUM 9.2 mg/dL (8.5-10.1)
[2021-05-15 10:10] LABS: ALBUMIN 3.3 g/dl (3.4-5.0); BLOOD UREA NITROGEN 10.4 mg/dL (7-18)
[2021-05-15 10:14] LABS: CREATININE 0.9 mg/dL (0.55-1.3); TOT PROT 7.2 g/dl (6.4-8.2)
[2021-05-15 10:15] LABS: BILIRUBIN,TOTAL 0.5 mg/dL (0.2-1)
[2021-05-15 10:23] LABS: ANISOCYTOSIS 0; HELMET CELLS 0; HOWELL-JOLLY BODIES 0; MACROCYTOSIS 0; OVALOCYTE 0; PLATELET ESTIMATE NORMAL; ROULEAU 0; SICKELED CELLS 0; TARGET CELLS 0; TEAR DROP CELLS 0; TOXIC GRANULATION 0
[2021-05-15] MEDS: SULFAMETHOXAZOLE/TRIMETHOPRIM 800MG/160MG D.S. TABLET PO SCH (10:26)
[2021-05-15] MEDS: CARVEDILOL 25 MG TABLET (FP) PO SCH ×2 (10:26→21:43)
[2021-05-15] MEDS: ENOXAPARIN NA (PORCINE) 40 MG/0.4 ML DISP.SYRIN SQ SCH (10:26)
[2021-05-15] MEDS: THIAMINE HCL 100 MG TABLET (FP) PO SCH (10:27)
[2021-05-15] MEDS: ELVITEG/COB/EMTRI/TENOFO (STRIBILD) TABLET -NF PO SCH (10:27)
[2021-05-15] MEDS: methylPREDNISolone NA SUCC 125 MG/2 ML VIAL IVPUSH SCH (10:28)
[2021-05-15] MEDS: FLUTICASONE PROP 0.05% 16 GM NASAL SPRAY NS SCH ×2 (15:17→21:43)
[2021-05-16] MEDS: NYSTATIN 500,000 UNITS/5 ML SUSPENSION PO SCH ×4 (00:29→17:19)
[2021-05-16] MEDS: VANCOMYCIN 1 GRAM (PRE-DOCKED) 1,000 MG/250 ML BAG IVPB SCH ×2 (00:29→15:41)
[2021-05-16] MEDS ORDERED: DEXTROSE 5%-WATER - 50 ML IVPB ONE ×5 (03:09→21:54)
[2021-05-16] MEDS ORDERED: PIPERACILLIN/TAZOBACTAM 3.375 GM VIAL IVPB ONE ×5 (03:09→21:54)
[2021-05-16] MEDS: PIPERACILLIN/TAZOB 3.375 GM 3.375 GM in DEXTROSE 5%-WATER - 50 ML IVPB SCH ×4 (03:11→21:56)
[2021-05-16 08:54] LABS: BASO % 0.1 % (0-2.0); EOS % 0.1 % (0-4.5); HEMATOCRIT 35.8 % (35.4-49); HEMOGLOBIN 11.5 GM/dL (11.7-16.9); LYMPH % 7.3 % (8-40); MCH 31.3 pg (25.7-33.7); MCHC 32.2 g/dl (32.0-35.9); MEAN CELL VOLUME 97.3 fl (80-96); MEAN PLT VOLUME 7.3 fl (7.5-11.1); MONO % 9.4 % (3.8-10.2); NEUT % 83.1 % (42.8-82.8); PLATELET COUNT 223 10^3/uL (134-434); RBC 3.68 M/mm3 (4.00-5.60); RDW 16.4 % (11.9-15.9); WHITE BLOOD COUNT 9.1 K/mm3 (4.0-10.0)
[2021-05-16] MEDS: methylPREDNISolone NA SUCC 125 MG/2 ML VIAL IVPUSH SCH (09:11)
[2021-05-16] MEDS: ENOXAPARIN NA (PORCINE) 40 MG/0.4 ML DISP.SYRIN SQ SCH (09:11)
[2021-05-16] MEDS: SULFAMETHOXAZOLE/TRIMETHOPRIM 800MG/160MG D.S. TABLET PO SCH (09:12)
[2021-05-16] MEDS: CARVEDILOL 25 MG TABLET (FP) PO SCH ×2 (09:12→21:52)
[2021-05-16] MEDS: ELVITEG/COB/EMTRI/TENOFO (STRIBILD) TABLET -NF PO SCH (09:12)
[2021-05-16] MEDS: THIAMINE HCL 100 MG TABLET (FP) PO SCH (09:12)
[2021-05-16] MEDS: FLUTICASONE PROP 0.05% 16 GM NASAL SPRAY NS SCH ×2 (09:13→21:58)
[2021-05-16 09:20] LABS: BLOOD UREA NITROGEN 13.7 mg/dL (7-18)
[2021-05-16 09:23] LABS: CREATININE 0.9 mg/dL (0.55-1.3)
[2021-05-16 09:24] LABS: BILIRUBIN,TOTAL 0.3 mg/dL (0.2-1); TOT PROT 6.4 g/dl (6.4-8.2)
[2021-05-16 09:25] LABS: CALCIUM 7.8 mg/dL (8.5-10.1)
[2021-05-16] MEDS ORDERED: PANTOPRAZOLE SODIUM 40 MG VIAL IVPUSH SCH (10:30)
[2021-05-16] MEDS: ACETAMINOPHEN 325 MG TABLET (FP) PO PRN (13:48)
[2021-05-16] MEDS: morphine SULFATE IMMEDIATE RELEASE 30 MG TAB PO PRN (21:58)
[2021-05-17] MEDS: NYSTATIN 500,000 UNITS/5 ML SUSPENSION PO SCH ×4 (01:30→17:28)
[2021-05-17] MEDS: VANCOMYCIN 1 GRAM (PRE-DOCKED) 1,000 MG/250 ML BAG IVPB SCH ×2 (01:55→13:08)
[2021-05-17] MEDS ORDERED: DEXTROSE 5%-WATER - 50 ML IVPB ONE ×4 (03:38→20:55)
[2021-05-17] MEDS ORDERED: PIPERACILLIN/TAZOBACTAM 3.375 GM VIAL IVPB ONE ×4 (03:38→20:55)
[2021-05-17] MEDS: PIPERACILLIN/TAZOB 3.375 GM 3.375 GM in DEXTROSE 5%-WATER - 50 ML IVPB SCH ×4 (03:41→21:08)
[2021-05-17] MEDS: morphine SULFATE IMMEDIATE RELEASE 30 MG TAB PO PRN (05:03)
[2021-05-17] MEDS ORDERED: INSULIN (NOVOLOG MIX 70/30) 100 UNITS/ML MDV SQ ONE (07:07)
[2021-05-17 07:56] LABS: BASO % 0.1 % (0-2.0); HEMATOCRIT 36.5 % (35.4-49); HEMOGLOBIN 11.7 GM/dL (11.7-16.9); LYMPH % 4.4 % (8-40); MCH 31.2 pg (25.7-33.7); MEAN CELL VOLUME 97.6 fl (80-96); MEAN PLT VOLUME 7.5 fl (7.5-11.1); NEUT % 89.5 % (42.8-82.8); PLATELET COUNT 219 10^3/uL (134-434); RBC 3.74 M/mm3 (4.00-5.60); WHITE BLOOD COUNT 11.8 K/mm3 (4.0-10.0)
[2021-05-17 08:44] LABS: CALCIUM 8.4 mg/dL (8.5-10.1)
[2021-05-17 08:45] LABS: BLOOD UREA NITROGEN 14.5 mg/dL (7-18)
[2021-05-17 08:48] LABS: CREATININE 0.8 mg/dL (0.55-1.3)
[2021-05-17] MEDS: CARVEDILOL 25 MG TABLET (FP) PO SCH ×2 (09:12→21:08)
[2021-05-17] MEDS: ENOXAPARIN NA (PORCINE) 40 MG/0.4 ML DISP.SYRIN SQ SCH (09:12)
[2021-05-17] MEDS: SULFAMETHOXAZOLE/TRIMETHOPRIM 800MG/160MG D.S. TABLET PO SCH (09:12)
[2021-05-17] MEDS: ELVITEG/COB/EMTRI/TENOFO (STRIBILD) TABLET -NF PO SCH (09:12)
[2021-05-17] MEDS: THIAMINE HCL 100 MG TABLET (FP) PO SCH (09:12)
[2021-05-17] MEDS: FLUTICASONE PROP 0.05% 16 GM NASAL SPRAY NS SCH ×2 (09:13→21:09)
[2021-05-17] MEDS: ACETAMINOPHEN 325 MG TABLET (FP) PO PRN ×3 (09:48→21:44)
[2021-05-18] MEDS: VANCOMYCIN 1 GRAM (PRE-DOCKED) 1,000 MG/250 ML BAG IVPB SCH ×2 (00:42→13:39)
[2021-05-18] MEDS: NYSTATIN 500,000 UNITS/5 ML SUSPENSION PO SCH ×4 (00:42→17:09)
[2021-05-18] MEDS ORDERED: DEXTROSE 5%-WATER - 50 ML IVPB ONE ×3 (01:35→21:11)
[2021-05-18] MEDS ORDERED: PIPERACILLIN/TAZOBACTAM 3.375 GM VIAL IVPB ONE ×3 (01:35→21:11)
[2021-05-18] MEDS: PIPERACILLIN/TAZOB 3.375 GM 3.375 GM in DEXTROSE 5%-WATER - 50 ML IVPB SCH ×5 (03:00→21:37)
[2021-05-18 08:42] LABS: BASO % 0.1 % (0-2.0); HEMATOCRIT 38.8 % (35.4-49); HEMOGLOBIN 12.6 GM/dL (11.7-16.9); LYMPH % 5.1 % (8-40); MCH 31.8 pg (25.7-33.7); MCHC 32.5 g/dl (32.0-35.9); MEAN CELL VOLUME 97.9 fl (80-96); MEAN PLT VOLUME 7.4 fl (7.5-11.1); MONO % 4.9 % (3.8-10.2); NEUT % 89.9 % (42.8-82.8); PLATELET COUNT 226 10^3/uL (134-434); RBC 3.96 M/mm3 (4.00-5.60); RDW 16.2 % (11.9-15.9); WHITE BLOOD COUNT 8.7 K/mm3 (4.0-10.0)
[2021-05-18 09:01] LABS: BLOOD UREA NITROGEN 13.6 mg/dL (7-18); CALCIUM 9.3 mg/dL (8.5-10.1)
[2021-05-18 09:04] LABS: CREATININE 0.9 mg/dL (0.55-1.3)
[2021-05-18] MEDS: CARVEDILOL 25 MG TABLET (FP) PO SCH ×2 (09:24→21:37)
[2021-05-18] MEDS: SULFAMETHOXAZOLE/TRIMETHOPRIM 800MG/160MG D.S. TABLET PO SCH (09:24)
[2021-05-18] MEDS: THIAMINE HCL 100 MG TABLET (FP) PO SCH (09:24)
[2021-05-18] MEDS: ENOXAPARIN NA (PORCINE) 40 MG/0.4 ML DISP.SYRIN SQ SCH (09:25)
[2021-05-18] MEDS: ELVITEG/COB/EMTRI/TENOFO (STRIBILD) TABLET -NF PO SCH (09:40)
[2021-05-18] MEDS: FLUTICASONE PROP 0.05% 16 GM NASAL SPRAY NS SCH ×2 (09:40→21:40)
[2021-05-18] MEDS ORDERED: OXYMETAZOLINE 0.05% NASAL SOLUTION 15 ML BOTTLE NS ONE (12:45)
[2021-05-18] MEDS ORDERED: SUCCINYLCHOLINE CHLORIDE 200 MG/10 ML SYRINGE ONE (13:24)
[2021-05-18] MEDS ORDERED: PROPOFOL 20 ML ONE (13:24)
[2021-05-18] MEDS ORDERED: MIDAZOLAM HCL 2 MG/2 ML SINGLE DOSE VIAL ONE (13:25)
[2021-05-18] MEDS ORDERED: ONDANSETRON 4 MG/2 ML VIAL ONE (14:07)
[2021-05-18] MEDS ORDERED: GLYCOPYRROLATE 0.2 MG/1 ML VIAL ONE (14:07)
[2021-05-18] MEDS ORDERED: LIDOCAINE 1%/EPI 1:100000 (20 ML MULTI DOSE VIAL) IJ ONE (14:10)
[2021-05-18] MEDS ORDERED: ROCURONIUM BROMIDE 100 MG/10 ML VIAL ONE (14:26)
[2021-05-18] MEDS ORDERED: ESMOLOL HCL 100,000 MCG/10 ML VIAL ONE (14:40)
[2021-05-18] MEDS ORDERED: NEOSTIGMINE METHYLSULFATE 0.5 MG/ML - 10 ML MDV ONE (14:52)
[2021-05-18] MEDS ORDERED: ONDANSETRON 4 MG/2 ML VIAL IVPUSH PRN ×2 (15:09→16:21)
[2021-05-18] MEDS ORDERED: LACTATED RINGERS SOLUTION 1,000 ML IV SCH ×2 (15:15→16:21)
[2021-05-18] MEDS ORDERED: SENNOSIDES 8.6MG TABLET (FP) PO PRN (16:21)
[2021-05-18] MEDS ORDERED: DOCUSATE SODIUM 100 MG CAPSULE (FP) PO PRN (16:21)
[2021-05-18] MEDS: ACETAMINOPHEN 325 MG TABLET (FP) PO PRN (17:08)
[2021-05-19] MEDS: NYSTATIN 500,000 UNITS/5 ML SUSPENSION PO SCH ×4 (00:58→17:11)
[2021-05-19] MEDS: VANCOMYCIN 1 GRAM (PRE-DOCKED) 1,000 MG/250 ML BAG IVPB SCH ×2 (00:59→12:37)
[2021-05-19] MEDS ORDERED: PIPERACILLIN/TAZOBACTAM 3.375 GM VIAL IVPB ONE ×3 (03:19→13:48)
[2021-05-19] MEDS ORDERED: DEXTROSE 5%-WATER - 50 ML IVPB ONE ×3 (03:20→13:48)
[2021-05-19] MEDS: ACETAMINOPHEN 325 MG TABLET (FP) PO PRN ×2 (05:27→10:11)
[2021-05-19] MEDS: PIPERACILLIN/TAZOB 3.375 GM 3.375 GM in DEXTROSE 5%-WATER - 50 ML IVPB SCH ×2 (09:45→14:03)
[2021-05-19] MEDS: CARVEDILOL 25 MG TABLET (FP) PO SCH (09:46)
[2021-05-19] MEDS ORDERED: ELVITEG/COB/EMTRI/TENOFO (STRIBILD) TABLET -NF PO SCH (10:00)
[2021-05-19] MEDS ORDERED: SULFAMETHOXAZOLE/TRIMETHOPRIM 800MG/160MG D.S. TABLET PO SCH (10:00)
[2021-05-19] MEDS ORDERED: ENOXAPARIN NA (PORCINE) 40 MG/0.4 ML DISP.SYRIN SQ SCH (10:00)
[2021-05-19] MEDS ORDERED: THIAMINE HCL 100 MG TABLET (FP) PO SCH (10:00)
[2021-05-19 10:15] LABS: BASO % 0.1 % (0-2.0); EOS % 1.1 % (0-4.5); HEMATOCRIT 42.1 % (35.4-49); HEMOGLOBIN 13.3 GM/dL (11.7-16.9); LYMPH % 14.4 % (8-40); MCHC 31.6 g/dl (32.0-35.9); MEAN CELL VOLUME 98.1 fl (80-96); MEAN PLT VOLUME 7.5 fl (7.5-11.1); MONO % 15.6 % (3.8-10.2); NEUT % 68.8 % (42.8-82.8); PLATELET COUNT 238 10^3/uL (134-434); RBC 4.29 M/mm3 (4.00-5.60); RDW 16.3 % (11.9-15.9); WHITE BLOOD COUNT 5.7 K/mm3 (4.0-10.0)
[2021-05-19] MEDS: FLUTICASONE PROP 0.05% 16 GM NASAL SPRAY NS SCH (10:17)
[2021-05-19 10:37] LABS: BLOOD UREA NITROGEN 10.3 mg/dL (7-18); CALCIUM 8.9 mg/dL (8.5-10.1)
[2021-05-19 10:40] LABS: CREATININE 0.9 mg/dL (0.55-1.3)
[2021-05-19 14:33] VITALS: BP 119/71; PULSE 76; TEMP 99
== END 2021-05-19 17:50 | disposition home or self-care (01) | DRG 385 ==
LOC: JER 13:25 → JERBED 21:34 → J6S 05-13 04:50
PROVIDERS: ADMIT Internal Medicine
PROC: 0DJ08ZZ Inspection of Upper Intestinal Tract, Via Natural or Artificial Opening Endoscopic (ICD-10-PCS; 2021-05-18)
PROC: 0CJS8ZZ Inspection of Larynx, Via Natural or Artificial Opening Endoscopic (ICD-10-PCS; principal; 2021-05-18 14:00)
DX: R22.1 Localized swelling, mass and lump, neck (principal); R22.0 Localized swelling, mass and lump, head; M54.2 Cervicalgia; K21.9 Gastro-esophageal reflux disease without esophagitis; I25.10 Atherosclerotic heart disease of native coronary artery without angina pectoris; I10 Essential (primary) hypertension; E78.5 Hyperlipidemia, unspecified; C76.0 Malignant neoplasm of head, face and neck; T66.XXXA Radiation sickness, unspecified, initial encounter; I69.351 Hemiplegia and hemiparesis following cerebral infarction affecting right dominant side; B20 Human immunodeficiency virus [HIV] disease; Z93.0 Tracheostomy status; J96.10 Chronic respiratory failure, unspecified whether with hypoxia or hypercapnia; G89.29 Other chronic pain
CPT/HCPCS: 36415; 70491-TC; 71260-TC; 76536-TC; 80048; 80053; 83735; 84100; 85025; 86359; 86360; 93970-TC; 93971; 94760; 97116-GP; 97162-GP; 99285-25; C9803; G0480; J0131; Q9967; U0003; U0005

== ENCOUNTER → 2021-06-09 | Day surgery (SDC) | payer OTHER ==
[2021-06-09 12:18] LABS: HEMATOCRIT 43.5 % (35.4-49); HEMOGLOBIN 14.3 GM/dL (11.7-16.9); MCH 32.2 pg (25.7-33.7); MCHC 32.9 g/dl (32.0-35.9); MEAN PLT VOLUME 7.2 fl (7.5-11.1); PLATELET COUNT 206 10^3/uL (134-434); RBC 4.43 M/mm3 (4.00-5.60); WHITE BLOOD COUNT 3.2 K/mm3 (4.0-10.0)
[2021-06-09 12:22] LABS: INR 1.05 (0.83-1.09); PROTHROMBIN TIME (PATIENT) 12.1 SEC (9.7-13.0)
[2021-06-09 12:25] LABS: ACTIVATED PTT 31.1 SECONDS (25.2-36.5)
[2021-06-09 12:44] LABS: CALCIUM 8.9 mg/dL (8.5-10.1)
[2021-06-09 12:45] LABS: ALBUMIN 3.6 g/dl (3.4-5.0); BLOOD UREA NITROGEN 13.1 mg/dL (7-18)
[2021-06-09 12:47] LABS: CREATININE 0.9 mg/dL (0.55-1.3)
[2021-06-09 12:50] LABS: BILIRUBIN,TOTAL 0.4 mg/dL (0.2-1); TOT PROT 7.2 g/dl (6.4-8.2)
[2021-06-09 13:47] LABS: ANISOCYTOSIS 0; MACROCYTOSIS 0; PLATELET ESTIMATE NORMAL
== END | disposition home or self-care (01) ==
LOC: JRADIR 11:24
PROVIDERS: ATTEND Internal Medicine Hematology & Oncology
PROC: 0JPT0WZ Removal of Totally Implantable Vascular Access Device from Trunk Subcutaneous Tissue and Fascia, Open Approach (ICD-10-PCS; principal; 2021-06-09)
DX: Z45.2 Encounter for adjustment and management of vascular access device (principal)
CPT/HCPCS: 36415; 36590; 77001-TC-FY; 80053; 85025; 85610; 85730